=== PATIENT | female | born 1930 | race Caucasian/White ===

== ENCOUNTER → 2017-08-03 | Outpatient (CLI) | payer MEDICARE, BC ==
[~2017-08-03] MED LIST: ASPIRIN81 MG PO; CALTRATE 600 +1 TA1 PO; CLOPIDOGREL75 MG PO; FUROSEMIDE 20MG20 MG FT; GABAPENTIN100 M1 PO; KEFLEX500 M1 PO; LOSARTAN POTASS1 TAB PO; NORCO 325 MG-101 TAB PO; POTASSIUM CHLO10 ME3 PO; SIMVASTATIN80 MG PO; VERAPAMIL HCL40 MG PO
[2017-08-03 08:39] LABS: BUN 24 mg/dL (7-18)
[2017-08-03 08:41] LABS: GFR (ESTIMATED) 39 ML/MIN (59-)
== END ==
LOC: LAB 08:14
PROVIDERS: Internal Medicine Adolescent Medicine
DX: E78.5 Hyperlipidemia, unspecified (principal); I10 Essential (primary) hypertension